=== PATIENT | male | born 1945 | race Caucasian/White ===

== ENCOUNTER → 2016-11-07 | Outpatient (CLI) | payer OTHER, BC ==
[~2016-11-07] MED LIST: ASPI81TA28 PO; ATOR10TA88 PO; CO Q10 PO; COEN10CA5 PO; FLUT0.15 NAE; GLUC1TAB44 PO; GLUCTAB7 PO; IBUP600T44 PO; KETO0.0216 OPB; LEVAAER2 PO; METR0.754 TOP; MOME100A INH; MOME220A INH; MULTTAB58 PO; OMEG10007 PO; OXYC-57 PO; VALA1TAB31 PO; WARF2TAB PO
--- NOTE | 2016-11-07 10:41 | DIAGNOSTIC IMAGING REPORT ---
(BARIUM SWALLOW) ESOPHAGUS CLINICAL HISTORY: J38.7 Laryngopharyngeal [id number] COMPARISON STUDY: None FLUOROSCOPY TIME: 1.1 minutes. FINDINGS: Patient initiates swallowing function well. Esophagus is normal in course and caliber. Gastroesophageal junction is unremarkable. There are findings of moderate gastroesophageal reflux to the mid to proximal one third level of the esophagus. IMPRESSION: 1. Moderate gastroesophageal reflux. 2. Study is otherwise negative Electronically signed by: Dar Miranda M.D. 11/07/2016 10:40 AM Dictated Date/Time: 11/07/2016 10:39 AM
== END | disposition home or self-care (01) ==
LOC: C.RAD 09:34
PROVIDERS: ATTEND Internal Medicine Pulmonary Disease
DX: J38.7 Other diseases of larynx (principal); K21.9 Gastro-esophageal reflux disease without esophagitis

== ENCOUNTER 2017-01-25 05:16 | Inpatient (IN) | payer OTHER, BC ==
[2017-01-06 11:27] VITALS: BMI 29.0
--- NOTE | 2017-01-06 12:03 | PAT Medication Instructions ---
Service Date Jan 06, 2017. Current Home Medication List Aspirin (Aspirin Ec), 81 MG PO HS Atorvastatin (Lipitor), 10 MG PO HS Fish Oil (Magnolia-3), 1 CAP PO QAM Fluticasone Propionate (Nasal) (Flonase Allergy Relief), 1 SPRAYS LUÍS QAM Eoczjsmtycv-Mszgamyqzaj-Tuo C- (Glucosamine Chondroitin), 1 TAB PO QAM Ibuprofen (Motrin), 600 MG PO Q6H PRN for Pain Ketotifen Fumarate (Ophth) (Zaditor 0.025% Oph), 1 DROP OPB Q8H PRN for EYE ITCHING Levalbuterol (Xopenex Hfa), 2 PUFFS PO Q4 PRN for SOB/Wheezing Metronidazole Hcl (Metrocream), 1 APPL TOP DAILY PRN for ROSACCEA Mometasone Furoate-Formoterol (Dulera 100/5 Mcg), 1 AER INH QAM Multiple Vitamin (Multivitamin), 1 TAB PO QAM Valacyclovir Hcl (Valtrex), 1 GM PO BID [Co Q10], 1 TAB PO QAM Medication Instructions For Your Scheduled Surgery - Check with surgeon for instructions: Ibuprofen (Motrin), 600 MG PO Q6H PRN for Pain - Hold the following medications 2 weeks prior to surgery: [Co Q10], 1 TAB PO QAM Rpugcswaltr-Vxplltnzetd-Clk C- (Glucosamine Chondroitin), 1 TAB PO QAM Fish Oil (Magnolia-3), 1 CAP PO QAM - Hold the following medications 24 hours prior to surgery: Metronidazole Hcl (Metrocream), 1 APPL TOP DAILY PRN for ROSACEA - Hold the following medications the morning of surgery: Multiple Vitamin (Multivitamin), 1 TAB PO QAM - Take the following medications the morning of surgery with a sip of water: Valacyclovir Hcl (Valtrex), 1 GM PO BID PRN Levalbuterol (Xopenex Hfa), 2 PUFFS PO Q4 PRN for SOB/Wheezing Ketotifen Fumarate (Ophth) (Zaditor 0.025% Oph), 1 DROP OPB Q8H PRN for EYE ITCHING Fluticasone Propionate (Nasal) (Flonase Allergy Relief), 1 SPRAYS LUÍS QAM Mometasone Furoate-Formoterol (Dulera 100/5 Mcg), 1 AER INH QAM - Take the following medications as scheduled the night before surgery: Valacyclovir Hcl (Valtrex), 1 GM PO BID PRN cold sores Levalbuterol (Xopenex Hfa), 2 PUFFS PO Q4 PRN for SOB/Wheezing Ketotifen Fumarate (Ophth) (Zaditor 0.025% Oph), 1 DROP OPB Q8H PRN for EYE ITCHING Atorvastatin (Lipitor), 10 MG PO HS Aspirin (Aspirin Ec), 81 MG PO HS If you have any questions please call us at [phone] (Laila Momin PA-C ) or [phone] or [phone]
--- NOTE | 2017-01-06 12:33 | DIAGNOSTIC IMAGING REPORT ---
TWO VIEW CHEST CLINICAL HISTORY: Preoperative examination. FINDINGS: PA and lateral chest radiographs are obtained. No prior studies are available for comparison at the time of dictation. The cardiomediastinal silhouette is unremarkable. There is mild atherosclerotic calcification of the thoracic aorta. There is elevation of the right hemidiaphragm with right basilar atelectasis. Tiny calcified granulomas are suspected. The lungs and pleural spaces are otherwise clear. There is no pneumothorax. The bony thorax appears intact. IMPRESSION: No active disease in the chest. Electronically signed by: Hossein Vazquez M.D. 01/06/2017 12:32 PM Dictated Date/Time: 01/06/2017 12:31 PM
[2017-01-06 12:42] LABS: BASO % 0.2 %; BASO ABS # 0.01 K/uL (0-0.2); COMPLETE YES; EOS % 4.2 %; HEMATOCRIT 39.4 % (42-52); IG% 0.4 %; LYMPH % 42.1 %; LYMPH ABS # 2.19 K/uL (1.2-3.4); MEAN CELL VOLUME 88.3 fL (80-100); MEAN CORPUSCULAR HEMOGLOBIN 29.6 pg (25-34); MEAN CORPUSCULAR HGB CONC 33.5 g/dl (32-36); MEAN PLATELET VOLUME 11.2 fL (7.4-10.4); MONO % 9.8 %; NEUT % 43.3 %; PLATELET COUNT 204 K/uL (130-400); RED BLOOD COUNT 4.46 M/uL (4.7-6.1)
[2017-01-06 12:45] LABS: URINE APPEARANCE CLEAR (CLEAR); URINE BILIRUBIN NEG (NEG); URINE COLOR DK YELLOW; URINE NITRITE NEG (NEG); URINE PH 5.5 (4.5-7.5); UROBILINOGEN NEG (NEG); ZZUR CULT IF INDIC CLEAN CATCH NO
[2017-01-06 12:51] LABS: MANUAL MICROSCOPIC REQUIRED? NO; REVIEW REQ? NO
[2017-01-06 13:00] LABS: PROTHROMBIN TIME (PATIENT) 11.1 SECONDS (9.0-12.0)
[2017-01-06 13:14] LABS: BUN/CREATININE RATIO 15.5 (10-20); CALCIUM 9.2 mg/dl (8.5-10.1); CREATININE 0.87 mg/dl (0.60-1.40); POTASSIUM 4.5 mmol/L (3.5-5.1)
--- NOTE | 2017-01-10 11:54 | HISTORY & PHYSICAL EXAMINATION ---
DATE OF ADMISSION: 01/25/2017 CHIEF COMPLAINT: Right knee pain. HISTORY OF PRESENT ILLNESS: This 71-year-old white male presents to the office with complaints of right knee pain that has been ongoing since 05/2015. Pain has gotten worse with time. He has tried oral anti-inflammatories, oral prednisone, activity modification, physical therapy, and intraarticular cortisone injections without lasting relief. He is frustrated at this point and would like to proceed with total knee arthroplasty. Pain is affecting his ADLs. It is worse with ambulation and weightbearing. He notes crepitus with motion of the knee. He denies any numbness or tingling. He denies swelling. Occasional buckling sensation. X-rays have been obtained. He elects to proceed with right total knee arthroplasty on 01/25/2017 in hopes of alleviating his pain. PAST MEDICAL HISTORY: Significant for elevated cholesterol, asthma, osteoarthritis, low back pain, GERD, and history of open right tibial fracture. Also rosacea. PREVIOUS SURGERIES: L4-L5 discectomy, right ankle ORIF done in 1967, right ankle arthroscopy with debridement in 06/2016, left shoulder arthroscopy with rotator cuff repair, colonoscopy. ALLERGIES: KNOWN ALLERGY TO ZOCOR. CURRENT MEDICATIONS: Aspirin 81 mg daily, atorvastatin 10 mg p.o. at bedtime, CoQ10 daily, Dulera 100 mcg/5 mcg inhalation daily, fluticasone 27.5 mcg nasal spray daily, ibuprofen 600 mg p.o. t.i.d., metronidazole 0.75% cream applied topically b.i.d., multivitamin daily, omega-3 fatty acid 200 mg daily, Valtrex 1 gram orally p.r.n. cold sores, Xopenex inhaler p.r.n., Zaditor 0.025% ophthalmic solution daily. FAMILY HISTORY: Significant for aortic aneurysm, heart disease, [place], and elevated lipids. SOCIAL HISTORY: The patient is retired. . No tobacco use, occasional ETOH use. REVIEW OF SYSTEMS: Significant for above-stated conditions, otherwise unremarkable. PHYSICAL EXAMINATION: GENERAL: Well-developed, well-nourished elderly white male in no acute distress. Sitting on the bed. Alert and oriented. SKIN: Warm and dry with good turgor. No rashes or lesions. No ecchymosis or erythema. HEENT: Normocephalic, atraumatic. Eyes: PERRLA, EOMI. Nares patent bilaterally without turbinate enlargement. Oropharynx without erythema or exudate. No lesions noted. Uvula midline. Oral mucosa moist. Good dentition. Dental fillings are noted. HEART: RRR. No MGR. LUNGS: Clear to auscultation bilaterally. No crackles, rhonchi or wheezing. Good air movement. ABDOMEN: Bowel sounds present x4, soft, nontender. No organomegaly. No masses. MUSCULOSKELETAL: Right knee has no intraarticular effusion. There is focal pain with palpation over the lateral joint line. Medial joint line is also uncomfortable with palpation. He lacks just a few degrees of terminal extension. Flexion to greater than 90 degrees. Strength is 5/5 with fair quad tone. Stable collateral ligaments. No defect in the patellar tendon or quadriceps tendon. Ambulatory with an antalgic gait. Varus alignment. He does ambulate on the outside portion of his foot on the right leg. NEUROLOGIC: Gross sensation is intact across both lower extremities by soft touch. Peripheral pulses are 2+. DATA: Radiographic imaging previously obtained shows significant arthritic changes in the medial compartment of the right knee. He has periarticular osteophytes, subchondral sclerosis, and joint space narrowing. IMPRESSION: Right knee degenerative joint disease. PLAN: Informed written consent was obtained to proceed with right total knee arthroplasty. Postoperative prescriptions for Percocet and Coumadin will be provided on the day of discharge from the hospital. He is thinking about home health versus extended stay placement. He already has a walker. Preoperative lab work, EKG, and chest x-ray have been ordered. Medical clearance has been requested from Dr. Paiz.
[2017-01-25] VITALS (8 sets, daily range): BP systolic 106–144; BP diastolic 67–87; PULSE 54–71; TEMP 36.3–37.1; O2SAT 94–98; Ht 177.8 cm; Wt 93.3 kg
[~2017-01-25] VITALS: Ht 177.8 cm; Wt 93.3 kg
[~2017-01-25 05:16] MED LIST changes: +ATOR10TA82 PO; -ATOR10TA88 PO; -COEN10CA5 PO; -GLUC1TAB44 PO; -MOME220A INH; -OXYC-57 PO; -WARF2TAB PO
[2017-01-25] MEDS ORDERED: LACTATED RINGER'S 500 ML IV SCH (06:00)
[2017-01-25] MEDS ORDERED: ROPIVACAINE 5MG/ML 30 ML 150 MG, BUPIVACAINE/EPINEPHR 0.5% MPF 30 ML, KETOROLAC TROMETH... INFIL SCH ×7 (06:00)
[2017-01-25] MEDS ORDERED: LACTATED RINGER'S 1000ML 1,000 ML IV SCH (06:00)
[2017-01-25] MEDS ORDERED: TRANEXAMIC ACID INJ 1,000 MG in SODIUM CHLORIDE 0.9% 100ML 100 ML IV SCH ×2 (06:00→14:30)
[2017-01-25] MEDS ORDERED: CEFAZOLIN 2000 MG/60 ML D5W 60 ML IV SCH (06:00)
[2017-01-25] MEDS ORDERED: LACTATED RINGER'S 1000ML IV SCH (06:00)
[2017-01-25] MEDS ORDERED: BUPIVACAINE 0.25% 30 ML VIAL ONE (06:33)
[2017-01-25] MEDS ORDERED: POVIDONE-IODINE OP SOLN 30 ML BTL ONE (06:34)
[2017-01-25] MEDS ORDERED: ORTHO JOINT ANESTHETIC ONE (06:34)
[2017-01-25] MEDS ORDERED: BUPIVACAINE 0.5 % 5 MG/1 ML PF 10ML VIAL ONE (06:34)
--- NOTE | 2017-01-25 06:34 | History & Physical Bridge Note ---
H&P Re-Evaluation Bridge Note: I have examined the patient, reviewed the History & Physical and in the interval since the performance of the History & Physical I have noted the following changes of clinical significance: addressed issues concerning numbness of R leg secondary to procedure.No changes noted
[2017-01-25] MEDS ORDERED: PROPOFOL IV EMULSION 10 MG/ML 20 ML VIAL IV ONE (06:45)
[2017-01-25] MEDS ORDERED: LIDOCAINE HCL 2% 2 ML VIAL (20MG/ML) ONE (06:45)
[2017-01-25] MEDS ORDERED: MIDAZOLAM HCL 1 MG/ML 2ML VIAL ONE ×2 (06:45→06:46)
[2017-01-25] MEDS ORDERED: FENTANYL CITRATE INJ 50 MCG/1 ML 2 ML VIAL ONE (06:46)
--- NOTE | 2017-01-25 08:21 | [facility] Post Operative Brief Note ---
Immediate Operative Summary Operative Date Jan 25, 2017. Pre-Operative Diagnosis Right Knee Degenerative Joint Disease Post-Operative Diagnosis Right Knee Degenerative Joint Disease Procedure(s) Performed Right Total Knee Arthroplasty Surgeon Dr. Aguilar Transmission Rebuilder Surgeon(s) Dr. Thaddeus Babin (Fellow)/ KIKI Marie Estimated Blood Loss 50 ml Findings PFJ/Medial compartment grade 4 Fluids (cc crystalloids) 1600cc Specimens A. Righ Knee Bone and Tissue Drains none Anesthesia spinal/OB Complication(s) None Disposition Recovery Room / PACU
[2017-01-25] MEDS ORDERED: PROMETHAZINE HCL INJ 12.5 MG in SODIUM CHLORIDE 0.9% 50ML 50 ML IV PRN (08:45)
[2017-01-25] MEDS ORDERED: ONDANSETRON INJ 2 MG/ML 2 ML VIAL IV PRN ×2 (08:45)
[2017-01-25] MEDS ORDERED: ALUMINUM/MAGNESIUM/SIMETH (MAALOX MAX) 30 ML UDC PO PRN (08:45)
[2017-01-25] MEDS ORDERED: TAMSULOSIN HCL 0.4 MG CAP PO PRN (08:45)
[2017-01-25] MEDS ORDERED: FLUMAZENIL 0.1 MG/1 ML 10 ML VIAL IV PRN (08:45)
[2017-01-25] MEDS ORDERED: DiphenhydrAMINE HCL 50 MG/ML VIAL IV PRN (08:45)
[2017-01-25] MEDS ORDERED: BISACODYL 10 MG SUPP PR PRN (08:45)
[2017-01-25] MEDS ORDERED: EpHEDrine SULFATE INJ 50 MG/ML AMP IV PRN (08:45)
[2017-01-25] MEDS ORDERED: ATROPINE SULFATE 0.1 MG/ML 5ML SYR IV PRN (08:45)
[2017-01-25] MEDS ORDERED: METOCLOPRAMIDE HCL INJ 5 MG/ML 2 ML VIAL IV PRN (08:45)
[2017-01-25] MEDS ORDERED: LEValbuterol HFA 15GM INHALER INH PRN (08:45)
[2017-01-25] MEDS ORDERED: ACETAMINOPHEN IV 100 ML IV PRN (08:45)
[2017-01-25] MEDS ORDERED: MAGNESIUM HYDROXIDE SUSP 30 ML UDC PO PRN (08:45)
[2017-01-25] MEDS ORDERED: NALOXONE HCL 0.4 MG/1 ML VIAL/CARP IV PRN (08:45)
[2017-01-25] MEDS ORDERED: MoRPHine SULFATE 2 MG/ML CARP IV PRN (08:45)
[2017-01-25] MEDS ORDERED: ACETAMINOPHEN 325 MG TAB PO PRN (08:45)
--- NOTE | 2017-01-25 08:52 | OPERATIVE REPORT ---
DATE OF OPERATION: 01/25/2017 CHIEF COMPLAINT: Right knee DJD. HISTORY OF PRESENT ILLNESS: This 71-year-old white male presented to the office with complaints of intractable right knee pain. He had tried conservative care measures including viscosupplementation, oral prednisone, oral anti-inflammatories, physical therapy, and intraarticular cortisone injections without lasting relief. He elected to proceed with surgical intervention after being educated about potential risks and outcomes. Preoperative x-rays were obtained. LOCK SETTER: Dr. Hanna. SECOND TIRE SERVICE SUPERVISOR: Rory Lau PA-C. OPERATION: The patient was administered a spinal anesthetic and then taken to the operating room where he was given sedation. The patient was prepped and draped in the usual sterile fashion. Please see Dr. Aguilar's operative report for specifics of the procedure. I was present for the entire case from initial patient positioning through final wound closure. Assistance was provided in tissue retraction, hemostasis, trial implant placement, final implant placement, and final wound closure. The patient was taken to the recovery room in satisfactory condition. I attest to the content of the Intraoperative Record and any orders documented therein. Any exceptio ns are noted below.
--- NOTE | 2017-01-25 08:53 | OPERATIVE REPORT ---
DATE OF OPERATION: 01/25/2017 PREOPERATIVE DIAGNOSIS: Osteoarthritis with varus deformity, right knee. POSTOPERATIVE DIAGNOSIS: Same. OPERATION PERFORMED: Cemented right total knee replacement. SURGEON: Dr. Aguilar. ROTARY FURNACE TENDER: Dr. Thaddeus Hanna. SECOND ROTARY FURNACE TENDER: Rory Lau PA-C. SUMMARY OF IMPLANTS: Size 4 narrow femur, size 4 rotating platform tray, size 4 12.5 thick posterior cruciate substituting spacer, oval domed 3 pegged patella size 41, 2 bags of Palacos G cement. ESTIMATED BLOOD LOSS: 50 mL. CRYSTALLOID: 1600 mL. Deep venous thrombosis prophylaxis per protocol. PERIOPERATIVE SITUATION: Medically cleared male with intractable knee pain has significant varus and patellofemoral crepitation. At this point in time wants to proceed with surgical treatment, failed conservative management for years. OPERATION: The patient appropriately identified, site verified, consent verified, 2 grams of Ancef confirmed as being given and 1 gram of TXA given. The leg was prepped and draped in usual routine fashion. Tourniquet inflated to 300 mmHg of mercury after exsanguination of limb with a rubber Esmarch bandage for a total of approximately 60 minutes. Midline exposure utilized. Parapatellar arthrotomy performed. Synovectomy completed. Soft tissue releases completed. Distal femur resected 12 mm. Proximal tibia resected 4 mm. The extension gap was excellent. The femur was sized to a 4 and appropriate anterior and posterior condylar and chamfer cuts made. The flexion gap was excellent. The posterior capsule was injected with the Orthomix. The box cut was then made and the size 4 trial fit well. The tibia was then broached and reamed to a 4 and trial spacing with the 10 and 12.5 worked well. The 12.5 was a little more stable in mid range flexion. The 12.5 size was selected, it did not eliminate any extension. The patella was sized to 41. Resection was made leaving 14. Trial holes made and then the trial implant tracked well. The knee was then injected with the Orthomix periarticularly then irrigated with Pulsavac, Betadine, trial implants were removed and irrigated again and then the permanent cemented into position. After 12 minutes, the tourniquet deflated. After 14 minutes the knee flexed. Trial spacer removed, knee irrigated. No cement needed to be removed. The permanent spacer seated and then the knee reduced and closed in about 40 degrees of flexion with #1 Ethibond, #1 Vicryl, 2-0 Vicryl and stainless steel clips. Appropriate soft tissue dressing applied. The patient was then transferred to recovery room in satisfactory condition having tolerated the procedure well. It should be mentioned that this patient has an ipsilateral ankle arthritis and ultimately will need to have an ankle fusion. He had some numbness in the leg stemming from that, but not from any knee injury. I attest to the content of the Intraoperative Record and any orders documented therein. Any exceptions are noted below. GUANAKITO
--- NOTE | 2017-01-25 09:11 | DIAGNOSTIC IMAGING REPORT ---
TWO VIEWS RIGHT KNEE CLINICAL HISTORY: Postoperative examination. FINDINGS: AP and crosstable lateral portable views of the right knee are obtained. A right knee arthroplasty is in near anatomic alignment. There has been undersurface remodeling of the patella. No acute fracture is seen. There are expected postoperative changes around the knee including skin clips,soft tissue edema, and subcutaneous gas. IMPRESSION: Expected postoperative changes status post right knee arthroplasty. No acute fracture is seen. Electronically signed by: Hossein Vazquez M.D. 01/25/2017 9:09 AM Dictated Date/Time: 01/25/2017 9:08 AM
--- NOTE | 2017-01-25 09:41 | Anesthesiology Progress Note ---
Anesthesia Post Op Note Date & Time Jan 25, 2017 at 09:40 Vital Signs Pain Intensity: 0 Vital Signs Past 12 Hours Date Time Temp Pulse Resp B/P Pulse Ox O2 Delivery O2 Flow Rate FiO2 01/25/17 09:35 36.0 58 14 120/66 95 Nasal Cannula 2 01/25/17 09:25 60 18 100/71 95 Nasal Cannula 2 01/25/17 09:15 56 16 113/72 95 Nasal Cannula 2 01/25/17 09:05 62 16 99/74 95 Nasal Cannula 2 01/25/17 08:55 63 16 111/73 94 Nasal Cannula 2 01/25/17 08:45 65 18 108/68 94 Nasal Cannula 2 01/25/17 08:35 72 16 109/65 95 Nasal Cannula 2 01/25/17 08:29 36.3 72 12 95/70 98 Mask 10 01/25/17 05:42 36.7 71 18 139/87 96 Room Air Notes Mental Status: alert / awake / arousable, participated in evaluation Pt Amnestic to Procedure: Yes Nausea / Vomiting: adequately controlled Pain: adequately controlled Airway Patency, RR, SpO2: stable & adequate BP & HR: stable & adequate Hydration State: stable & adequate Neuraxial Anesthesia: was administered, sensory block is resolving Anesthetic Complications: no major complications apparent
[2017-01-25] MEDS ORDERED: D5W AND 1/2NSS + 20MEQ KCL 1,000 ML IV SCH (10:45)
--- NOTE | 2017-01-25 11:05 | PROGRESS NOTE ---
DATE: 01/25/2017 Postop check right total knee replacement. At this point in time, the patient is doing well. He has no major issues. His vital signs are stable. He is afebrile. His neurovascular check is limited by the spinal still being in place. His postop x-ray looks excellent. At this point in time, he denies nausea, chest pain, shortness breath, fever, chills, headache. ASSESSMENT: Doing reasonably well. Waiting for spinal to wear off. Will ambulate later today. Hep-Lock IV after lunch. Social service is already planning to see him. We will prepare for discharge tomorrow.
[2017-01-25] MEDS ORDERED: MoRPHine SULFATE 4 MG/ML 1 ML CARP\\VIAL IV PRN (11:45)
[2017-01-25] MEDS ORDERED: OXYC-57 PO (12:00)
[2017-01-25] MEDS ORDERED: WARF2TAB PO (12:00)
[2017-01-25] MEDS: PANTOprazole SOD 40 MG TAB PO SCH (13:28)
[2017-01-25] MEDS: MULTIVITAMIN TAB PO SCH (13:28)
[2017-01-25] MEDS: FERROUS GLUCONATE 324 MG TAB PO SCH ×2 (13:28→17:33)
[2017-01-25] MEDS: KETOROLAC TROMETHAMINE 15 MG/ML VIAL IV. SCH ×3 (13:28→23:27)
[2017-01-25] MEDS: CEFAZOLIN IV 2,000 MG in DEXTROSE 5% 50ML 50 ML IV SCH ×2 (13:49→20:59)
[2017-01-25] MEDS ORDERED: WARFARIN SOD 5 MG TAB PO ONE (16:00)
[2017-01-25] MEDS: OXYCODONE HCL IR 5 MG TAB (IMMEDIATE RELEASE) PO PRN ×2 (16:14→20:59)
[2017-01-25] MEDS: ATORVASTATIN 10 MG TAB PO SCH (20:58)
[2017-01-25] MEDS: ASPIRIN 81 MG ECTAB PO SCH (20:58)
[2017-01-25] MEDS: DOCUSATE SODIUM 100 MG CAP PO SCH (20:58)
[2017-01-25] MEDS: CLOTRIMAZOLE 1% CR 15 GM TUBE EXT SCH (21:00)
[2017-01-26 03:30] VITALS: BP 108/67; PULSE 68; TEMP 37; O2SAT 96
[2017-01-26] MEDS: OXYCODONE HCL IR 5 MG TAB (IMMEDIATE RELEASE) PO PRN ×5 (03:32→23:13)
[2017-01-26] MEDS: KETOROLAC TROMETHAMINE 15 MG/ML VIAL IV. SCH (05:34)
[2017-01-26 05:50] LABS: HEMATOCRIT 31.6 % (42-52); MEAN CELL VOLUME 90.5 fL (80-100); MEAN CORPUSCULAR HEMOGLOBIN 29.5 pg (25-34); MEAN CORPUSCULAR HGB CONC 32.6 g/dl (32-36); MEAN PLATELET VOLUME 10.3 fL (7.4-10.4); PLATELET COUNT 137 K/uL (130-400); RED BLOOD COUNT 3.49 M/uL (4.7-6.1); WHITE BLOOD COUNT 9.09 K/uL (4.8-10.8)
[2017-01-26 05:58] LABS: INR 1.1 (0.9-1.1); PROTHROMBIN TIME (PATIENT) 11.4 SECONDS (9.0-12.0)
[2017-01-26 06:19] LABS: BUN/CREATININE RATIO 16.8 (10-20); CREATININE 0.97 mg/dl (0.60-1.40); POTASSIUM 4.3 mmol/L (3.5-5.1)
--- NOTE | 2017-01-26 06:52 | PROGRESS NOTE ---
DATE: 01/26/2017 Postop day #1 status post right total knee replacement. At this point in time, the patient denies chest pain, shortness breath, fever, chills, nausea, vomiting or headache. Vital signs are stable. He is afebrile. Abdomen soft, nontender. Calves nontender. Femoral sciatic nerve function is good, can do a straight leg raise. Slight lag. LABORATORY WORK: Reveals hematocrit stable at 31.6. INR is 1.1. Electrolytes are good. ASSESSMENT: Overall doing well, a little bit anxious about going home today but has a good opportunity to do that if he so desires. Will do PT, OT today. If he does well this morning, will discharge this afternoon. If not, await until tomorrow. Discharge on 4 mg Coumadin today.
[2017-01-26 06:54] VITALS: BP 125/74; PULSE 72; TEMP 36.9; O2SAT 95
--- NOTE | 2017-01-26 06:57 | DISCHARGE SUMMARY ---
POTENTIAL DATE OF DISCHARGE: 01/26/2017 versus 01/27/2017 CHIEF COMPLAINT: Right knee pain. HISTORY OF PRESENT ILLNESS: A 71-year-old male admitted for elective right total knee replacement. His postoperative course has been relatively uneventful. A little bit anxious about going home today. Pain is well managed. Vital signs are stable. He is afebrile. Electrolytes and hematocrit are excellent. PAST MEDICAL HISTORY: Remarkable for hypercholesterolemia, asthma, osteoarthritis, low back pain, GERD, history of right tibia fracture. Also has rosacea. PREVIOUS SURGERIES: Include discectomy, ankle surgery, right ankle arthroscopy, left shoulder arthroscopy, colonoscopy. ALLERGIES: TO ZOCOR. PREADMISSION MEDICATIONS: Include aspirin, atorvastatin, CoQ10, Dulera, fluticasone nasal spray, ibuprofen p.r.n., metronidazole cream, omega-3 fatty acid, Valtrex p.r.n., Xopenex inhaler, Zaditor ophthalmic solution. He will discontinue any anti-inflammatories which includes ibuprofen. Can continue his 81 mg aspirin daily and Coumadin 4 mg to keep INR 1.8-2.2. FAMILY HISTORY: Remarkable for aortic aneurysm, heart disease, [place] and elevated hypercholesterolemia. SOCIAL HISTORY: Reveals that he is retired, . No tobacco or alcohol use. REVIEW OF SYSTEMS: Reveals no chest pain, shortness of breath, fever, chills, nausea, vomiting, headache. ASSESSMENT: Overall doing well status post right total knee replacement. Potential discharge today versus tomorrow. Discharge on 4 mg of Coumadin if INR is less than 1.4.
[2017-01-26] MEDS ORDERED: DEXAMETHASONE INJ 10 MG in SYRINGE 0 ML IV ONE (07:30)
--- NOTE | 2017-01-26 07:43 | Discharge Instructions ---
Discharge Instructions Date of Service Jan 25, 2017. Admission Reason for Admission: Right Knee Osteoarthritis Discharge Discharge Diagnosis / Problem: Right knee s/p total knee replacement Discharge Goals Goal(s): Decrease discomfort, Improve function, Increase independence Activity Recommendations Activity Limitations: as noted below Lifting Limitations: gradually increase as tolerated Exercise/Sports Limitations: until after follow-up appointment Shower/Bathe: keep incision dry Driving or Machine Use: No driving until cleared by Dr. Aguilar Weightbearing Status: Right weightbearing (as tolerated) . Instructions / Follow-Up Instructions / Follow-Up New Medicine: * You will likely be taking one or more of these medications: 1. Percocet - Take, as directed, when you need it, every four to six hours to control your pain. 2. Coumadin - Thins your blood to lessen the chance of forming a blood clot. The dose of this is different for each person and is based on your blood tests that are done twice a week. * The most common side effects of pain medicine and iron are nausea and constipation. If nausea or constipation is too much of a problem or if you have any questions about your new medicines or doses, call [facility] at . We will try to help you manage these issues. VERY IMPORTANT TO READ AND REVIEW" Blood Clots and Blood Thinning Medicine: * You are given Coumadin during the immediate post-operative period to lessen the risk of blood clots forming in your legs and/or lungs. Coumadin is usually given for six weeks after surgery. * The prescription is for 2 mg tablets. At discharge, you should understand your dose and take it all at the same time every day, preferably after dinner. * You need to get your blood checked 1 - 2 times per week for six weeks or as directed. * If your dose needs to change, we will call you. Do not take your medication on the day of the blood test until we call you. Pain: * The immediate post-operative period after knee replacement surgery is often quite painful. * You are given a prescription for pain medicine. You should take it, as directed, when you need it, especially before physical therapy and before going to bed. Pain that interferes with sleep is very common and can last several months. * You will likely need pain medicine for the first four to six weeks. It will not stop all of the pain. The pain will lessen and as you feel better, you may change to milder pain medicine such as Tylenol. * The most common side effects of pain medicine are nausea and constipation, so don't take more than you need. Physical Therapy: * You will have physical therapy two or three times each week for four to six weeks after your surgery in order to regain your knee range of motion and to retrain your knee to work properly. * It is just as important to make sure you are getting your knee perfectly straight as it is to regain your knee bend. * Taking a pain pill an hour before therapy can help you have a more productive and comfortable therapy session if needed. Home Exercise: * You were shown a series of exercises (heel props, heel slides, etc.) in the hospital. Do these exercises three to four times each day including the exercises you were shown in physical therapy. Walking: * Get up and walk several times each day. For the first four weeks, try not to stand or walk for more than one hour at a time. If you do stand or walk for more than one hour, you will not hurt anything, but your knee and leg will likely swell. * As you feel comfortable, you may change from the walker or crutches to a cane and then to independent walking. SELF CARE INSTRUCTIONS AFTER TOTAL KNEE REPLACEMENT A. You may need to continue a physical therapy program after discharge from the hospital. There are several options available to you. Your doctor will assist you in selecting the best one for you. 1. An out-patient facility 2 to 3 times a week for therapy or home therapy. 2. Continue working on all exercises taught to you in the hospital. Your goals should be to increase bending of your knee to 90 degrees and beyond and to fully straighten your knee. B. You may progress at your own pace from walking with a walker or crutches to a cane; then to no assistive devices. C. Make walking a part of your daily routine. Be up as much as comfortable with rest periods throughout the day. Rest with leg elevation is very important. Use the ice wrap frequently for the first 3-4 weeks. D. There are no restrictions on activities. You may ride in a car, shop, participate in [employer] commissary production and all social activities. E. Wear the long elastic stockings (JARED hose) 20 hours a day for six weeks after surgery. They can be removed several times a day for laundering and for a shower. F. Do not place a pillow behind your knee when resting. A pillow at your ankle is okay. VERY IMPORTANT TO READ AND REVIEW A. Take Coumadin, Aspirin or Lovenox (blood thinning medications) as directed by your doctor. If on Coumadin, have a pro-time (blood test) drawn according to your doctor's instructions. This will tell the doctor how well the Coumadin is thinning your blood. 1. YOU WILL BE GIVEN AN ORDER AT DISCHARGE FOR PT/INR (BLOOD WORK). PLEASE HAVE THIS DONE INSTRUCTED. PLEASE CALL OUR OFFICE AFTER YOUR BLOODWORK IS COMPLETE SO WE CAN TRACK YOUR RESULTS. IF YOU ARE GOING TO OUTPATIENT PHYSICAL THERAPY, YOU WILL NEED TO GO TO OUTPATIENT TESTING TO HAVE IT DRAWN. B. There are a few signs you need to watch for after you are home. Call [facility] if you notice any of the followin. Increased severe knee pain. Some pain is expected especially when you exercise. 2. Increased swelling in your leg or knee; pain or swelling of the calf muscle in either lower leg. 3. Any fluid drainage from the incision. 4. Shortness of breath or chest pain. C. Please call [facility] at if you have any concerns or questions about your operation or recovery. The doctor or his nurse will return your call promptly. D. You must take antibiotics before dental work, bladder, bowel or other surgery. Call the office to obtain a prescription at least 2 days prior to your appointment. * CALL IF INCREASED PAIN, REDNESS, DRAINAGE OR FEVER GREATER THAT 101. * Sutures should be removed 12-14 days after surgery unless you are on chronic steriods, then it will be 14-18 days after surgery. Call your doctor if: * Temperature above 101 degrees F. * Pain not relieved by pain medicine ordered. * Increased drainage or redness from incision. * Notify your doctor with any questions or concerns. Current Hospital Diet Patient's current hospital diet: Regular Diet Discharge Diet Recommended Diet: Regular Diet Procedures Procedures Performed: Right Total Knee Arthroplasty Pending Studies Studies pending at discharge: no Medical Emergencies . Who to Call and When: Medical Emergencies: If at any time you feel your situation is an emergency, please call 911 immediately. . Non-Emergent Contact Non-Emergency issues call your: Primary Care Provider, Surgeon Call Non-Emergent contact if: temperature is above 101, wound has increased drainage, wound has increased redness, wound has increased pain, you have any medication questions . "Provider Documentation" section prepared by Rory Lau PA-C. . VTE Core Measure Inpt VTE Proph given/why not?: Warfarin (Coumadin), T.E.D. Stockings, SCD's [place] Drug Monitoring Program Search Results: no issues identified
--- NOTE | 2017-01-26 08:04 | Anesthesiology Progress Note ---
Anesthesia Post Op Note Date & Time Jan 26, 2017 at 08:02 Vital Signs Pain Intensity: 5.0 Vital Signs Past 12 Hours Date Time Temp Pulse Resp B/P Pulse Ox O2 Delivery O2 Flow Rate FiO2 01/26/17 06:54 36.9 72 16 125/74 95 Room Air 01/26/17 03:30 37.0 68 18 108/67 96 Room Air 01/25/17 23:20 36.8 57 18 127/69 94 Room Air Notes Mental Status: alert / awake / arousable, participated in evaluation Pt Amnestic to Procedure: Yes Nausea / Vomiting: adequately controlled Pain: adequately controlled Airway Patency, RR, SpO2: stable & adequate BP & HR: stable & adequate Hydration State: stable & adequate Neuraxial Anesthesia: sensory block resolved Anesthetic Complications: no major complications apparent
[2017-01-26] MEDS: FERROUS GLUCONATE 324 MG TAB PO SCH ×3 (08:09→18:13)
[2017-01-26] MEDS: MULTIVITAMIN TAB PO SCH (08:19)
[2017-01-26] MEDS: DOCUSATE SODIUM 100 MG CAP PO SCH ×2 (08:19→20:58)
[2017-01-26] MEDS: PANTOprazole SOD 40 MG TAB PO SCH (08:19)
[2017-01-26] MEDS: FLUTICASONE PROPIONATE NA SPR 16 GM BTL NAE SCH (08:20)
[2017-01-26] MEDS: CLOTRIMAZOLE 1% CR 15 GM TUBE EXT SCH ×2 (08:22→21:00)
--- NOTE | 2017-01-26 08:28 | Orthopedic Progress Note ---
Orthopedic Progress Note Date of Service Jan 26, 2017. Subjective Post OP Day: 1 Reports: feeling well, Denies: SOB, calf pain, chest pain, complaints, light headedness, nausea / vomiting Additional Notes: states he did not sleep well due to interruptions. Objective calves soft nontender, N/V intact, capillary refill less than 2 sec., dressing C /D/I, incision C/D/I, A&O x3, toes mobile, CMS intact dressings are dry, scant dry drainage on bandages. Date Time Temp Pulse Resp B/P Pulse Ox O2 Delivery O2 Flow Rate FiO2 01/26/17 06:54 36.9 72 16 125/74 95 Room Air 01/26/17 03:30 37.0 68 18 108/67 96 Room Air 01/25/17 23:20 36.8 57 18 127/69 94 Room Air 01/25/17 19:47 36.8 69 18 106/67 96 Room Air 01/25/17 19:45 Room Air 01/25/17 15:40 Room Air 01/25/17 15:36 37.1 67 18 142/82 96 Room Air 01/25/17 13:05 36.9 62 18 138/85 98 Nasal Cannula 2.0 01/25/17 12:00 36.7 56 17 144/87 98 Nasal Cannula 2.0 01/25/17 10:57 36.7 54 18 143/86 96 Nasal Cannula 2.0 01/25/17 10:29 36.3 55 17 136/81 97 Nasal Cannula 2.0 01/25/17 10:00 Nasal Cannula 2.0 01/25/17 10:00 Nasal Cannula 2.0 01/25/17 09:45 57 12 111/75 97 Nasal Cannula 2 01/25/17 09:35 36.0 58 14 120/66 95 Nasal Cannula 2 01/25/17 09:25 60 18 100/71 95 Nasal Cannula 2 01/25/17 09:15 56 16 113/72 95 Nasal Cannula 2 01/25/17 09:05 62 16 99/74 95 Nasal Cannula 2 01/25/17 08:55 63 16 111/73 94 Nasal Cannula 2 01/25/17 08:45 65 18 108/68 94 Nasal Cannula 2 01/25/17 08:35 72 16 109/65 95 Nasal Cannula 2 01/25/17 08:29 36.3 72 12 95/70 98 Mask 10 Laboratory Results 24 Hours: Test 01/26/17 05:34 Hematocrit 31.6 % Hemoglobin 10.3 g/dL Prothromb Time International Ratio 1.1 Prothrombin Time 11.4 SECONDS Assessment & Plan Assessment: Right knee post op day 1 total knee arthroplasty Plan: PT/OT this morning patient has some apprehension about discharge today we will see how he does with therapy today and reassess this afternoon coumadin per nomogram dressing changed by me. Wound looks good. maintain total knee precautions postop office and PT appointments already made. Discharge Planning Discharge Planning: home Pain Management: Percocet DVT Prophylaxis: TEDs, SCDs, Coumadin Therapy: Physical Therapy
[2017-01-26] MEDS ORDERED: WARFARIN SOD 5 MG TAB PO SCH (10:00)
[2017-01-26 11:42] VITALS: BP 146/83; PULSE 69; TEMP 36.9; O2SAT 92
[2017-01-26 15:44] VITALS: BP 142/80; PULSE 72; TEMP 37.5; O2SAT 95
--- NOTE | 2017-01-26 19:22 | PROGRESS NOTE ---
DATE: 01/26/2017 SUBJECTIVE: The patient was very anxious while leaving today. At this point in time, he will leave tomorrow. Vital signs are stable. Afebrile. Wound dressing clean, dry and intact. Neurovascular check normal. Calves normal. No nausea, vomiting, no abdominal pain. Continue with care pathway, discharge tomorrow for PT, OT.
[2017-01-26] MEDS: ASPIRIN 81 MG ECTAB PO SCH (20:59)
[2017-01-26] MEDS: ATORVASTATIN 10 MG TAB PO SCH (20:59)
[2017-01-26] MEDS ORDERED: DEXAMETHASONE INJ 4 MG in SYRINGE 0 ML IV ONE (22:00)
[2017-01-26 23:45] VITALS: BP 134/71; PULSE 72; TEMP 37; O2SAT 96
[2017-01-27 06:24] LABS: INR 1.2 (0.9-1.1)
--- NOTE | 2017-01-27 06:41 | PROGRESS NOTE ---
DATE: 01/27/2017 Postop day #2 status post right total knee replacement. At this point in time, the patient denies any chest pain, shortness of breath, fever, chills, nausea, vomiting or headache. Vital signs are stable, he is afebrile. Neurovascular check, femoral sciatic nerve is intact. Wound dressing clean, dry and intact. Sitting with his leg slightly bent, needs to work more on extension. Can discontinue the knee immobilizer. Dressing change later today by PA. INR is 1.2 today. Coumadin per nomogram today. Discharge on 4 mg Coumadin. Calves nontender. Abdomen nontender. ASSESSMENT: Overall doing well. Discharge today. Needs to focus on extension. Has postural positioning of his hip and his knee for comfort, he needs to overcome that. I have advised that of him repeatedly. Discontinue knee immobilizer. Weightbearing to tolerance. Discharge on 4 mg of Coumadin.
[2017-01-27] MEDS: OXYCODONE HCL IR 5 MG TAB (IMMEDIATE RELEASE) PO PRN ×2 (07:02→11:47)
[2017-01-27 07:41] VITALS: BP 134/76; PULSE 73; TEMP 36.9; O2SAT 96
--- NOTE | 2017-01-27 07:48 | DISCHARGE SUMMARY ---
ADDENDUM The patient is now ready for discharged today. I emphasized for him the need to do extension exercises avoiding the body posture and hip positioning that keeps his knee flexed. Discontinue knee immobilizer. Discharged on 4 mg of Coumadin daily. MTDD
[2017-01-27] MEDS: FERROUS GLUCONATE 324 MG TAB PO SCH ×2 (07:50→11:46)
--- NOTE | 2017-01-27 08:18 | Progress Note ---
Orthopedic SOAP Note Subjective Date of Service: Jan 27, 2017. 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 Objective calves soft nontender, N/V intact, capillary refill less than 2 sec., dressing C /D/I, incision C/D/I, A&O x3, toes mobile Date Time Temp Pulse Resp B/P Pulse Ox O2 Delivery O2 Flow Rate FiO2 01/27/17 07:41 36.9 73 16 134/76 96 Room Air 01/26/17 23:45 37.0 72 18 134/71 96 Room Air 01/26/17 19:30 Room Air 01/26/17 16:15 Room Air 01/26/17 15:44 37.5 72 16 142/80 95 Room Air 01/26/17 11:42 36.9 69 16 146/83 92 Room Air Laboratory Results 24 Hours: Test 01/27/17 05:36 Prothromb Time International Ratio 1.2 Prothrombin Time 13.0 SECONDS Assessment Right knee post op day 2 total knee arthroplasty Plan PT/OT this morning we will see how he does with therapy today and reassess this afternoon will be discharged home on 4mg of Coumadin, recheck Monday dressing changed by me. Wound looks good. maintain total knee precautions WBAT right L.E. with walker pain meds already filled postop office and PT appointments already made. resume diet ice/elevate spent 25 minutes with the patient today answering questions
[2017-01-27] MEDS: CLOTRIMAZOLE 1% CR 15 GM TUBE EXT SCH (09:00)
[2017-01-27] MEDS: MULTIVITAMIN TAB PO SCH (09:51)
[2017-01-27] MEDS: FLUTICASONE PROPIONATE NA SPR 16 GM BTL NAE SCH (09:51)
[2017-01-27] MEDS: DOCUSATE SODIUM 100 MG CAP PO SCH (09:51)
[2017-01-27] MEDS: PANTOprazole SOD 40 MG TAB PO SCH (09:52)
[2017-01-27] MEDS ORDERED: WARFARIN SOD 5 MG TAB PO ONE (12:00)
[2017-01-27 12:54] VITALS: BP 134/76; PULSE 73; TEMP 36.9; O2SAT 96
== END 2017-01-27 14:25 | disposition home or self-care (01) | DRG 470 ==
LOC: ENRESERVDT → ENRESERVTM → C.ACU 05:16 → C.3E 06:29
PROVIDERS: ADMIT Physical Medicine & Rehabilitation Sports Medicine; ATTEND Physical Medicine & Rehabilitation Sports Medicine
PROC: 0SRC0J9 Replacement of Right Knee Joint with Synthetic Substitute, Cemented, Open Approach (ICD-10-PCS; principal; 2017-01-25 07:00)
DX: M17.11 Unilateral primary osteoarthritis, right knee (principal); M21.161 Varus deformity, not elsewhere classified, right knee; E78.00 Pure hypercholesterolemia, unspecified; J45.909 Unspecified asthma, uncomplicated; Z79.1 Long term (current) use of non-steroidal anti-inflammatories (NSAID); Z79.51 Long term (current) use of inhaled steroids; Z79.82 Long term (current) use of aspirin; Z79.899 Other long term (current) drug therapy; Z88.8 Allergy status to other drugs, medicaments and biological substances; Z82.49 Family history of ischemic heart disease and other diseases of the circulatory system; Z83.49 Family history of other endocrine, nutritional and metabolic diseases

== ENCOUNTER → 2017-03-20 | Outpatient (CLI) | payer OTHER, BC ==
[~2017-03-20] MED LIST changes: -CO Q10 PO; -GLUCTAB7 PO; -IBUP600T44 PO; -OMEG10007 PO; +OXYC-57 PO; +WARF2TAB PO
== END | disposition home or self-care (01) ==
LOC: C.RDSM 14:00
PROVIDERS: ATTEND Physical Medicine & Rehabilitation Sports Medicine
DX: Z96.659 Presence of unspecified artificial knee joint (principal)

== ENCOUNTER → 2017-08-28 | Outpatient (CLI) | payer OTHER, BC ==
[~2017-08-28] MED LIST changes: -OXYC-57 PO; -WARF2TAB PO
== END | disposition home or self-care (01) ==
LOC: C.RDSM 10:30
PROVIDERS: ATTEND Physical Medicine & Rehabilitation Sports Medicine
DX: Z96.651 Presence of right artificial knee joint (principal)